=== PATIENT | female | born 1960 | race African-American/Black ===

== ENCOUNTER 2017-01-19 16:37 | Emergency (ER) | payer OTHER ==
[2017-01-19 16:54] LABS: Bilirubin Negative (Negative); Blood, Urine Large (Negative); Clarity Cloudy (Clear); Glucose, Urine (Dipstick) Negative (Negative); Leukocyte Negative (Negative); Nitrite Negative (Negative); Protein, Urine (Dipstick) 30 mg/dL (Neg-Trace)
[2017-01-19] MEDS ORDERED: Ondansetron HCl/PF 4 MG/2 ML Vial ONE (17:07)
[2017-01-19] MEDS ORDERED: Ketorolac Tromethamine 30 MG/ML VIAL ONE (17:07)
[2017-01-19 17:08] LABS: Bacteria/HPF Rare-Few HPF (None Seen); RBC/HPF 21-50 HPF (0-3); WBC/HPF 0-3 HPF (0-3)
[2017-01-19] MEDS ORDERED: Sodium Chloride 0.9% 1,000 ML ONE (17:21)
[2017-01-19 17:22] LABS: #Eosinphils 0.1 thou/uL (0.0-0.7); #Lymphocytes 0.9 thou/uL (1.20-3.40); #Monocytes 0.5 thou/uL (0.11-0.59); #Neutrophils 6.9 thou/uL (1.40-6.50); %Basophils 0.6 % (0.0-1.0); %Eosinophils 1.2 % (0.0-10.0); %Lymphocytes 10.9 % (21.0-51.0); %Monocytes 5.9 % (0.0-10.0); %Neutrophils 81.4 % (42.0-75.0); Hemoglobin 13.9 g/dL (12.0-16.0); Mean Corpuscular Volume 87.8 fl (81.0-99.0); Mean Platelet Volume 8.4 fL (7.4-10.4); Platelet Count 206 thou/uL (130-400); RBC Distribution Width 12.3 % (11.5-14.5); White Blood Cell (WBC) Count 8.4 thou/uL (4.8-10.8)
[2017-01-19 17:41] LABS: ALT (SGPT) 19 U/L (8-55); AST (SGOT) 15 U/L (5-34); Albumin 4.2 g/dL (3.5-5.0); Alkaline Phosphatase 109 U/L (40-150); Anion Gap 18 mmol/L (10-20); BUN (Urea Nitrogen) 15 mg/dL (9.8-20.1); Bilirubin, Total 0.5 mg/dL (0.2-1.2); Calc. Creatinine Clearance 0 mL/min (70-130); Calcium 9.5 mg/dL (7.8-10.44); Carbon Dioxide 18 mmol/L (22-29); Chloride 110 mmol/L (98-107); Estimated GFR-MDRD 60; Globulin 3.2 g/dL (2.4-3.5); Glucose 108 mg/dL (70-105); Potassium 3.2 mmol/L (3.5-5.1); Protein, Total 7.4 g/dL (6.0-8.3); Sodium 143 mmol/L (136-145)
--- NOTE | 2017-01-19 18:00 | CT ---
CT ABDOMEN AND PELVIS NONCONTRAST RENAL CALCULUS PROTOCOL CLINICAL HISTORY: Left flank pain. History of urolithiasis. COMPARISON: 07/16/2016 FINDINGS: There is moderate left hydronephrosis and hydroureter, as the result of a 4 mm distal left ureteral calculus. Punctate, nonobstructing bilateral nephrolithiasis is present, without evidence of right- sided obstructive uropathy. The solid abdominal organs, bowel, lymph nodes, and vasculature are inc ompletely assessed without the presence of IV or enteric contrast. Evidence of prior cholecystectom y. Volume loss and/or scarring seen at the lung bases. No free air. No ascites of significance wi thin the abdomen. Minimal fat stranding/fluid of the posterior pelvis, notably to the left of midli ne, present. IMPRESSION: 1. 4 mm obstructing distal left ureteral calculus with moderate left obstructive uropathy. 2. Punctate bilateral nephrolithiasis. 3. Stable left adrenal adenoma. POS: [facility]
== END 2017-01-19 18:40 | disposition home or self-care (01) ==
LOC: NAV ERS 16:37
DX: N13.2 Hydronephrosis with renal and ureteral calculous obstruction (principal); F17.210 Nicotine dependence, cigarettes, uncomplicated; Z79.891 Long term (current) use of opiate analgesic; Z79.899 Other long term (current) drug therapy
CPT/HCPCS: 36415; 74176; 80053; 81003; 81015; 85025; 96361; 96374; 96375; J1885; J2270; J2405; J7050

== ENCOUNTER 2019-05-09 10:07 | Emergency (ER) | payer OTHER ==
[2019-05-09] MEDS ORDERED: Ketorolac Tromethamine 60 MG/2 ML VIAL ONE (10:44)
[2019-05-09] MEDS ORDERED: Cyclobenzaprine 10 MG TAB ONE (10:44)
== END 2019-05-09 11:21 | disposition home or self-care (01) ==
LOC: NAV ERS 10:07
DX: M62.830 Muscle spasm of back (principal); M19.90 Unspecified osteoarthritis, unspecified site; F17.210 Nicotine dependence, cigarettes, uncomplicated; Z79.899 Other long term (current) drug therapy; Z85.3 Personal history of malignant neoplasm of breast
CPT/HCPCS: 93005; 96372; J1885